=== PATIENT | female | born 1980 | race American Indian/Alaskan Native ===

== ENCOUNTER 2017-03-24 10:14 | Outpatient (CLI) | payer MEDICAID ==
--- NOTE | 2017-03-24 16:14 | Ultrasound Report ---
Transabdominal and transvaginal OB ultrasound. History: Pelvic mass in a patient with a serum hCG of 2822 on March 19 performed in the patient's physician's office. Findings: There is no evidence of intrauterine . In the posterior aspect of the lower uterine segment, there is a heterogeneous vascular mass which measures approximately 7.1 x 6.0 x 6.9 cm. The mass is somewhat ovoid in shape. The left ovary is normal. There is a 1.4 cm in diameter complex area within the right ovary. There is no fluid within the cul-de-sac. Impression: Complex mass in the lower uterine segment with no evidence of an intrauterine . Given the patient's serum hCG level, a molar is the most likely diagnosis. Serial hCGs and clinical evaluation are recommended. Comment: These findings were telephoned to the patient's referring physician, Dr. Rosario Gan at 3:30 PM on March 24, 2017.
== END 2017-03-24 10:15 | disposition home or self-care (01) ==
LOC: US 10:14
PROVIDERS: ATTEND Obstetrics & Gynecology
DX: Z32.01 Encounter for pregnancy test, result positive (principal); N85.9 Noninflammatory disorder of uterus, unspecified; R19.07 Generalized intra-abdominal and pelvic swelling, mass and lump
CPT/HCPCS: 76801; 76817

== ENCOUNTER 2017-04-27 09:42 | Outpatient (CLI) | payer MEDICAID ==
--- NOTE | 2017-04-27 11:41 | Ultrasound Report ---
ULTRASOUND PELVIC COMPLETE ULTRASOUND TRANSVAGINAL HISTORY: Uterine mass. TECHNIQUE: Transabdominal and transvaginal ultrasound with color and spectral doppler interrogation. OB ultrasound performed 03/24/17 was reviewed. The uterus is anteverted. The uterus measures 9.8 x 4.4 x 5.8 cm. Again, there is a complex heterogeneous mass with cystic change in the lower uterine segment or within the anterior wall of the uterus measuring up to 6.4 x 3.7 x 6.3 cm. This has decreased in size by approximately 25% since the previous exam in which it measured 7.1 x 6.0 x 6.9 cm. Decreased perfusion to this mass is suggested on color Doppler interrogation since the previous exam. The endometrial stripe is only visualized on the uterine fundus region on the transabdominal images. The endometrium measures 7 mm in this area. The right ovary is unremarkable measuring 3.2 x 1.6 x 3.4 cm. The left ovary measures 4.5 x 1.9 x 3.6 cm. There is a complex area in the left ovary with increased vascularity measuring 2.3 cm in diameter. This may represent a corpus luteum cyst. This was not clearly demonstrated on the previous examination No pelvic fluid collection. IMPRESSION: Uterine mass as described above which has decreased in size and vascularity since 03/24/17. Complex lesion in the left ovary which may represent a corpus luteum cyst or other etiology.
== END 2017-04-27 09:43 | disposition home or self-care (01) ==
LOC: US 09:42
DX: N85.9 Noninflammatory disorder of uterus, unspecified (principal); N83.8 Other noninflammatory disorders of ovary, fallopian tube and broad ligament; E34.9 Endocrine disorder, unspecified
CPT/HCPCS: 76830; 76856